=== PATIENT | female | born 1990 | race Two or more races ===

== ENCOUNTER 2017-06-13 17:53 | Emergency (ER) | payer MEDICAID ==
[~2017-06-13] VITALS: Ht 152.4 cm; Wt 63.5 kg
[~2017-06-13 17:53] MED LIST: PREN-96 OR
[2017-06-13 18:15] VITALS: BP 109/85
[2017-06-13] MEDS ORDERED: KETOROLAC TROMETH 60MG/2ML VIAL IM ONE (21:00)
== END 2017-06-13 22:52 | disposition home or self-care (01) ==
LOC: ER 17:53
DX: M54.5 Low back pain (principal)
CPT/HCPCS: 72100; 96372; 99284; J1885